=== PATIENT | male | born 1985 | race Hispanic/Latino ===

== ENCOUNTER 2024-05-29 11:20 | Day surgery (SDC) | payer SELFPAY ==
[2024-05-29] VITALS (9 sets, daily range): BP systolic 120–136; BP diastolic 69–88; PULSE 64–88; RESP 12–24; TEMP 36.2–36.4; O2SAT 96–100
--- NOTE | ~2024-05-29 | CT_ITS ---
EXAMINATION: CT abdomen pelvis w con DATE: 05/29/2024 12:37 INDICATION: Right lower quadrant abdominal pain. TECHNIQUE: Computed tomography (CT) of the abdomen and pelvis was performed with 100 mL Omnipaque 350 intravenous contrast. Automated exposure control and iterative reconstruction technique were employe d. The dose-length product was 454.99 mGy-cm. COMPARISON: None. FINDINGS: The visualized portions of lung bases demonstrate mild atelectasis. No pleural effusion. Th e heart size is normal. No pericardial effusion. The liver, gallbladder, spleen, pancreas, adrenal gl ands, and right kidney are normal. There is 11 mm cyst in left kidney. There are appendicoliths in th e appendix. The appendix is fluid-filled and dilated to 9 mm with adjacent fat stranding, consistent with appendicitis. 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 There are no dilated loops of bowel. There is no free intraperitoneal fluid. There is mild lumbar spondylosis. IMPRESSION: 1. Acute appendicitis. Reviewed, dictated and finalized at location A. IMPRESSION: 1. Acute appendicitis.
[2024-05-29] MEDS: ONDANSETRON INJ 4 MG/2 ML VIAL IV PUSH (11:53)
[2024-05-29] MEDS: MORPHINE SULFATE (*CRX) 4 MG/ML INJ IV PUSH (11:53)
[2024-05-29] MEDS: SODIUM CHLORIDE 0.9% IV 1,000 ML 999 ML IV CONT (11:53)
[2024-05-29 11:56] LABS: Basophils Percent Auto 0.2 % (0.2-1.2); Eosinophils Percent Auto 0.2 % (0-4.4); Hematocrit 41.4 % (42.0-52.0); Immature Granulocyte Absolute 0.07 K/mm3 (0.00-0.031); Immature Granulocyte Percent A 0.6 % (0-0.5); Lymphocytes Absolute Auto 1.08 K/mm3 (0.9-3.2); Mean Corpuscular HGB Conc 33.8 g/dl (32-36); Mean Corpuscular Hemoglobin 29.7 pg (26-34); Mean Corpuscular Volume 87.7 fl (80-100); Monocytes Absolute Auto 0.5 K/mm3 (0.1-0.6); Monocytes Percent Auto 4.2 % (2.6-8.5); Neutrophils Absolute Auto 10.3 K/mm3 (1.3-6.7); Neutrophils Percent Auto 85.8 % (45.5-73.1); Platelet Count Result 267 k/mm3 (150-375); Red Blood Count 4.72 M/mm3 (4.6-6.20); Red Cell Distribution Width 12.2 % (11.5-14.5)
[2024-05-29 12:04] LABS: Prothrombin Time 13.5 Seconds (11.1-14.7)
[2024-05-29 12:05] LABS: Partial Thromboplastin Time 25.6 Seconds (22.3-36.8)
[2024-05-29 12:06] LABS: Alanine Aminotransferase 21 U/L (6-50); Albumin Level 4.5 g/dL (3.5-5.1); Alkaline Phosphatase 77 U/L (38-126); Anion Gap 8 mmol/L (4-12); Aspartate Amino Transferase 25 U/L (17-59); Bilirubin,Total 0.4 mg/dL (0.2-1.3); Blood Urea Nitrogen 14 mg/dL (9-20); Calcium 8.4 mg/dL (8.4-10.2); Carbon Dioxide 28 mmol/L (22-30); Chloride 102 mmol/L (98-107); Estimated CRCL calculation 103 ml/min; Estimated Glomerular Filt Rate > 60; Glucose 116 mg/dL (65-110); Lipase 74 U/L (23-300); Potassium 4.3 mmol/L (3.4-5.0); Sodium 138 mmol/L (137-145)
--- NOTE | 2024-05-29 12:51 | ED.ABDPAIN ---
HPI - Abdominal Pain General Chief Complaint: Abdominal Pain Stated Complaint: ab pain Time Seen by Provider: 05/29/24 11:34 History of Present Illness HPI narrative: Patient is a 38-year-old male who presents ER with abdominal pain. Sudden onset this morning. Sharp and located in the right lower quadrant. Worse with physical movement. No fevers or chills or sweats. No vomiting. No urinary symptoms. He does still have an appendix. History obtained from his cousin as patient is [place]-speaking. Related Data Allergies Allergy/AdvReac Type Severity Reaction Status Date / Time No Known Allergies Allergy Verified 05/29/24 15:45 Review of Systems Review of Systems: All systems reviewed & are unremarkable except as noted in HPI and below Constitutional: Constitutional: Reports no additional constitutional complaints Cardiovascular: Cardiovascular: Reports no additional cardiovascular complaints Respiratory: Respiratory: Reports no additional respiratory complaints Gastrointestinal: Gastrointestinal: Reports abdominal pain, Denies diarrhea, Denies nausea and Denies vomiting Genitourinary: Genitourinary: Reports no additional male genitourinary complaints PMFSH Past Medical History Medical History (Updated 05/29/24 @ 18:35 by Bradley High MD) Healthy adult male Surgical History Surgical History (Updated 05/29/24 @ 18:32 by Bradley High MD) H/O hand surgery Exam Narrative: GENERAL: Well-appearing, well-nourished, and in no acute distress. HEAD: Normocephalic, atraumatic. ENT: Mucous membranes moist. CHEST: Clear to auscultation. No respiratory distress. HEART: Regular rate and rhythm. Normal peripheral pulses. ABDOMEN: Soft, right lower quadrant tenderness with guarding, nondistended, normal active bowel sounds. EXTREMITIES: Normal range of motion. No edema. SKIN: Warm, dry, no rash. NEURO: Alert and oriented x3. PSYCH: Normal mood and affect. Course Vital Signs Vital signs: Vital Signs Temperature 97.6 F 05/29/24 11:24 Pulse Rate 64 05/29/24 11:24 Respiratory Rate 16 05/29/24 11:24 Blood Pressure 123/78 05/29/24 11:24 Pulse Oximetry 100 05/29/24 11:24 Oxygen Delivery Room Air 05/29/24 11:24 Temperature 97.2 F L 05/29/24 16:26 Pulse Rate 64 05/29/24 18:00 Respiratory Rate 14 05/29/24 18:00 Blood Pressure 128/72 05/29/24 18:00 Pulse Oximetry 100 05/29/24 17:05 Oxygen Delivery Room Air 05/29/24 18:00 Oxygen Flow Rate 8 05/29/24 16:35 MDM - Abdominal Pain MDM Narrative Medical decision making narrative: -Course: Resting comfortably cough, will go to the OR. Has been NPO since yesterday. His lab out of coffee this morning. -Co-morbidities complicating care: None -Social determinants of health: Kazakh-speaking -External Chart Review: None -Hx from independent Sources: Patient and cousin -Independent interpretation of studies: Appendicitis on CT scan. Mild leukocytosis of 12,000. Normal CMP. -Interventions: Morphine 4 mg IV, Zofran 4 mg IV, normal saline 1 L. -Shared decision making / Disposition: General surgery consulted and will take the patient to the OR. Patient received ceftriaxone and metronidazole Lab Data 05/29/24 11:46 05/29/24 11:47 Labs: Lab Results 05/29/24 05/29/24 Range/Units 11:46 11:47 WBC 12.0 H (4.5-10.0) K/mm3 RBC 4.72 (4.6-6.20) M/mm3 Hgb 14.0 (14.0-18.0) g/dL Hct 41.4 L (42.0-52.0) % MCV 87.7 (80-100) fl MCH 29.7 (26-34) pg MCHC 33.8 (32-36) g/dl RDW 12.2 (11.5-14.5) % Plt Count 267 (150-375) k/mm3 MPV 10.0 (7.4-10.4) fl Immature Gran % (Auto) 0.6 H (0-0.5) % Neut % (Auto) 85.8 H (45.5-73.1) % Lymph % (Auto) 9.0 L (18.3-44.2) % [place] % (Auto) 4.2 (2.6-8.5) % Eos % (Auto) 0.2 (0-4.4) % Baso % (Auto) 0.2 (0.2-1.2) % Lymph # (Auto) 1.08 (0.9-3.2) K/mm3 [place] # (Auto) 0.5 (0.1-0.6) K/
[2024-05-29] MEDS: LACTATED RINGERS 1,000 ML 30 ML IV CONT ×2 (14:30→16:26)
--- NOTE | 2024-05-29 14:57 | WPDANESEPPF ---
Anes - Initial Pre Proc Eval Procedure: Operation Date: 05/29/24 15:00 Proposed Procedures p Laparoscopic Appendectomy, Possible Open - Steven Sanchez MD Date/Time: 05/29/24 14:57 Surgeon: Steven Sanchez MD Pre Op Diagnosis: ab pain Patient Data Age: 38 Gender: M Height: 1.78 m Weight: 86.2 kg Last Vital Signs Temp 97.6 F 05/29/24 11:24 Pulse 64 05/29/24 11:24 Resp 16 05/29/24 11:24 BP 123/78 05/29/24 11:24 Pulse Ox 100 05/29/24 11:24 O2 Del Method Room Air 05/29/24 11:24 Allergies Allergy/AdvReac Type Severity Reaction Status Date / Time No Known Allergies Allergy Verified 05/29/24 11:42 Laboratory Tests 05/29/24 05/29/24 11:46 11:47 WBC 12.0 H K/mm3 (4.5-10.0) RBC 4.72 M/mm3 (4.6-6.20) Hgb 14.0 g/dL (14.0-18.0) Hct 41.4 L % (42.0-52.0) MCV 87.7 fl (80-100) MCH 29.7 pg (26-34) MCHC 33.8 g/dl (32-36) RDW 12.2 % (11.5-14.5) Plt Count 267 k/mm3 (150-375) MPV 10.0 fl (7.4-10.4) Immature Gran % (Auto) 0.6 H % (0-0.5) Neut % (Auto) 85.8 H % (45.5-73.1) Lymph % (Auto) 9.0 L % (18.3-44.2) [place] % (Auto) 4.2 % (2.6-8.5) Eos % (Auto) 0.2 % (0-4.4) Baso % (Auto) 0.2 % (0.2-1.2) Lymph # (Auto) 1.08 K/mm3 (0.9-3.2) [place] # (Auto) 0.5 K/mm3 (0.1-0.6) Eos # (Auto) 0.0 K/mm3 (0-0.3) Baso # (Auto) 0.0 K/mm3 (0.0-0.1) Abs Immat Gran (auto) 0.07 H K/mm3 (0.00-0.031) Absolute Neuts (auto) 10.3 H K/mm3 (1.3-6.7) Absolute Nucleated RBC 0.000 K/mm3 (0.0-0.012) Nucleated RBC % 0.0 % (0.0-0.2) PT 13.5 Seconds (11.1-14.7) INR 1.0 APTT 25.6 Seconds (22.3-36.8) Sodium 138 mmol/L (137-145) Potassium 4.3 mmol/L (3.4-5.0) Chloride 102 mmol/L (98-107) Carbon Dioxide 28 mmol/L (22-30) Anion Gap 8 mmol/L (4-12) BUN 14 mg/dL (9-20) Creatinine 0.90 mg/dL (0.7-1.3) Estim Creat Clear Calc 103 ml/min Estimated GFR > 60 (59 - ) Glucose 116 H mg/dL (65-110) Calcium 8.4 mg/dL (8.4-10.2) Total Bilirubin 0.4 mg/dL (0.2-1.3) AST 25 U/L (17-59) ALT 21 U/L (6-50) Alkaline Phosphatase 77 U/L (38-126) Total Protein 8.0 g/dL (6.3-8.2) Albumin 4.5 g/dL (3.5-5.1) Lipase 74 U/L (23-300) Patient hx anesthesia problems: none Family hx anesthesia problems: none Results Review: All pre-operative results and documents have been reviewed as part of the pre-operative evaluation. Anes - Eval Final PreProcedure Day of Procedure 05/29/24 14:57 Patient weight: normal Heart: regular rate and rhythm Lungs: clear to auscultation Airway: Mallampati scale and special considerations (Pt has cavities, no loose teeth. ) Last oral intake: 6 hours ASA classification: II Emergent: yes Anesthetic plan: proceed Anesthesia type and monitoring: general ETT and standard monitoring Results Review: All pre-operative results and documents have been reviewed as part of the pre-operative evaluation. Pt had a piece of bread, coffee at 8 am. Preop interview via [employer] unit coordinator. Pt w good health, active can walk 1 mile without cp or sob. Informed Consent: The patient's anesthetic plan and its attendant risks and benefits were discussed with the patient/family/POA. Questions were solicited and answers provided to the satisfaction of the patient/family/POA.
--- NOTE | 2024-05-29 15:20 | WPDHPUPDATE1 ---
History and Physical Update Update Date/Time: 05/29/24 15:20 History and Physical has been reviewed, including an updated exam of the patient. There are NO changes in the patient's condition. Risks, benefits, and alternatives have been discussed and questions answered. Patient agrees to proceed with procedure.
[2024-05-29] MEDS: metroNIDAZOLE 500 MG/ISO 100ML 500 MG/100 ML BAG 100 MG IVPB (15:35)
--- NOTE | 2024-05-29 15:43 | PM.SD2 ---
Same Day Admit/Disch: [facility] History of Present Illness Chief complaint: ab pain Narrative: Rj Calderon is a 38 year old male who noticed right lower quadrant abdominal pain very early this morning. This pain got worse and was associated with nausea and vomiting. He came to the emergency room. His evaluation there showed right lower quadrant tenderness with guarding. He had an elevated white blood cell count of 12,000. CT scan showed acute appendicitis without evidence of rupture or abscess. Patient is non-Occitan speaking and prefers translation per his cousin who is here with him. Same Day Admit/Disch: Med Pre-admit Medications Home Medications Medication Instructions Recorded Confirmed Type No Home Medications 05/29/24 05/29/24 History Review of Systems Review of Systems All systems reviewed & are unremarkable except as noted in HPI and below (HPI) Exam Const: General: no acute distress, alert, awake and uncomfortable HENMT: Head: normocephalic and atraumatic Mouth: Yes Normal oral and palatal mucosa present Eyes: Conjunctivae: conjunctivae normal Pupils: Equal, round and reactive pupils present EOM: EOMs intact bilaterally Neck: Neck: normal visual inspection, no lymphadenopathy and nontender Resp: Effort & Inspection: normal respiratory effort Auscultation: clear to auscultation bilaterally Cardio: Rate: regular rate Rhythm: regular rhythm Heart sounds: no gallops, no murmurs and no rubs GI: Inspection: no abdominal wall ecchymosis, non-distended, no scars and no visible herniation GI Palp: Yes Firmness to palpation present (GI), Yes Tenderness to palpation present (GI) (Right lower quadrant with guarding), Yes Guarding due to palpation present (GI), No Hepatomegaly present, No Splenomegaly present, No Hernia present, No Palpable mass present and Yes Rebound tenderness present Auscultation: normal bowel sounds Skin: Lesions: no lesions Rashes: no rashes Neuro: General: no focal motor deficits and CN's II-XI intact bilaterally Cranial nerves: Yes Equal, round and reactive pupils present, Yes Bilaterally intact EOM present, Yes facial symmetry and Yes Midline tongue present Speech: normal speech Motor exam (neuro): 5/5 motor strength present throughout and Motor abnormalities not present Extrem: General: no clubbing, cyanosis or edema and edema Psych: Affect: normal affect Thought process: Normal thought process present Insight: Good insight present (Psych) DS: Data Data Completed and Pending Labs on day of discharge: Labs from last 24 hours 05/29/24 05/29/24 11:47 11:46 WBC 12.0 H RBC 4.72 Hgb 14.0 Hct 41.4 L MCV 87.7 MCH 29.7 MCHC 33.8 RDW 12.2 Plt Count 267 MPV 10.0 Immature Gran % (Auto) 0.6 H Neut % (Auto) 85.8 H Lymph % (Auto) 9.0 L [place] % (Auto) 4.2 Eos % (Auto) 0.2 Baso % (Auto) 0.2 Lymph # (Auto) 1.08 [place] # (Auto) 0.5 Eos # (Auto) 0.0 Baso # (Auto) 0.0 Abs Immat Gran (auto) 0.07 H Absolute Neuts (auto) 10.3 H Absolute Nucleated RBC 0.000 Nucleated RBC % 0.0 PT 13.5 INR 1.0 APTT 25.6 Sodium 138 Potassium 4.3 Chloride 102 Carbon Dioxide 28 Anion Gap 8 BUN 14 Creatinine 0.90 Estim Creat Clear Calc 103 Estimated GFR > 60 Glucose 116 H Calcium 8.4 Total Bilirubin 0.4 AST 25 ALT 21 Alkaline Phosphatase 77 Total Protein 8.0 Albumin 4.5 Lipase 74 DS: Summary Time Spent with Patient Time attestation: Total time spent providing and/or coordinating discharge services: DS: Admitting Diagnosis Discharge Date 05/29/2024 Admitting Diagnosis Acute appendicitis-I explained the nature of the diagnosis to the patient with his cousin providing translation. I discussed nonsurgical treatment but recommended laparoscopic appendectomy. The patient agrees. I discussed the procedure, length of recovery, time in the hospital, and potential complications. Ac brown
[2024-05-29] MEDS: fentaNYL CITRATE INJ (*CRX) 100 MCG/2 ML VIAL 25 MCG IV PUSH ×4 (16:48→16:58)
--- NOTE | 2024-05-29 16:52 | P.OP_ITS ---
Procedure Note - Detailed Date of Procedure 05/29/24 Pre-op Diagnosis Acute appendicitis Post-op Diagnosis Same Procedure Performed Laparoscopic appendectomy Surgeon Steven Sanchez MD [employer] Equipment Operator Gio Anesthesia General and Local Indications Patient awakened early this morning with right lower quadrant abdominal pain and vomiting. He came into the emergency room and was found to have peritoneal signs and leukocytosis. CT scan showed acute appendicitis. He is taken to surgery now for laparoscopic appendectomy. Findings Acute appendicitis without evidence of perforation or abscess Description of Procedure Patient was taken to surgery and induced into general anesthesia. The abdomen is prepped and draped. Trocars were placed in the usual fashion using [employer] optical trocars and a 5 mm camera. Patient was placed in Trendelenburg with the right-side elevated. The appendix was easily found and was elevated anteriorly. The mesoappendix was exposed. Dissection was carried out in the mesoappendix and cautery was used for hemostasis. The appendiceal artery was found and was thoroughly cauterized and divided. The base the appendix was skeletonized. A Vicryl endoloop was used to ligate the appendix at its base. The appendix was amputated just above the ligature and the mucosa of the appendiceal stump was cauterized. The appendix was placed immediately in an Endo-Catch bag and retrieved through the 10 11 left lower quadrant trocar site. We replaced the trocar and then reviewed the areas of dissection and the appendiceal stump. All looked good with no evidence of bleeding or other problem. We then evacuated CO2 and removed the trocar sleeves. Skin wounds were closed with subcuticular 4-0 Monocryl skin suture. The wounds were dressed with Exofin surgical adhesive. Patient was awakened and taken to recovery in good condition. Sponge needle counts were correct x2. Estimated Blood Loss -5 Drains No Packing No Pathology Yes ( acute appendicitis) Complications None Condition Stable Disposition PACU [facility] Billing Surgery - Charge Forward: Surgery Billing (Laparoscopic appendectomy)
--- NOTE | 2024-05-29 17:03 | SUR.PHASEI ---
[id number] - guest service representative Keith [phone] used for communication
[2024-05-29] MEDS: oxyCODONE HCL (*CRX) 5 MG TAB IR PO (17:38)
--- NOTE | 2024-05-29 18:36 | SUR.PHASEII ---
1800: patient dressed and ready to dc. waiting on confirmation that pharmacy received orders for pain medication.
== END 2024-05-29 18:45 | disposition home or self-care (01) ==
LOC: ANHED 13:55 → ANHSURGERY 14:00
PROVIDERS: Emergency Provider Emergency Medicine; Visit Provider Surgery
PROC: 0DTJ4ZZ Resection of Appendix, Percutaneous Endoscopic Approach (ICD-10-PCS; CPT 44970; principal; 2024-05-29 15:00)
DX: K35.30 Acute appendicitis with localized peritonitis, without perforation or gangrene (principal); G89.18 Other acute postprocedural pain; Z98.890 Other specified postprocedural states
CPT/HCPCS: 44970; 36415; 74177; 80053; 83690; 85025; 85610; 85730; 88304; 96365; 96375; 99285; A9270; J0330; J0696; J1100; J1170; J1836; J2250; J2270; J2405; J2704; J3010; J7030; J7120; Q9967